=== PATIENT | male | born 1970 | race Two or more races ===

== ENCOUNTER 2023-09-02 10:42 | Emergency (ER) | payer OTHER ==
[~2023-09-02] VITALS: Ht 177.8 cm; Wt 90.0 kg
[~2023-09-02 10:42] MED LIST: CEPH250C PO
[2023-09-02 11:02] VITALS: BP 138/88
[2023-09-02 11:40] VITALS: PULSE 82; RESP 18; TEMP 98.5; O2SAT 97
== END 2023-09-02 11:57 | disposition home or self-care (01) ==
LOC: ER 10:42
DX: Z46.6 Encounter for fitting and adjustment of urinary device (principal); R33.9 Retention of urine, unspecified; Z79.899 Other long term (current) drug therapy

== ENCOUNTER 2025-07-26 05:47 | Inpatient (IN) | payer OTHER ==
[~2025-07-26] VITALS: Ht 177.8 cm; Wt 91.0 kg
[2025-07-26] MEDS: ONDANSETRON HCL 4 MG/2 ML VIAL IV ONE ×2 (07:04→08:25)
[2025-07-26] MEDS: SODIUM CHLORIDE 0.9% 1,000 ML IVB ONE (07:04)
[2025-07-26] MEDS: KETOROLAC TROMETH 30 MG/ML 1ML VIAL IV ONE (07:04)
--- NOTE | 2025-07-26 07:18 | ED.PDOC ---
General HPI Comments 54 y/o M, with PMHx of prostate cancer presents to the ED for CC of flank pain. Patient reports, that he has been experiencing bilateral flank pain sudden onset, 2300 last night (07/25/25). Patient comments, that he was recently told by his PCP to have a kidney stones and believes symptoms maybe related. Patient denies frequency, urgency, fever, hematuria, or penile discharge. No other symptoms or modifying factors are present at this time. Chief Complaint: Flank Pain Time Seen by MD: 06:45 Primary Care Provider: DEMARCUS Reviewed notes: Nurses Notes, Medications, Allergies Allergies: Coded Allergies: NO KNOWN ALLERGIES (Unverified , 09/01/23) Home Meds Active Scripts Cephalexin (KEFLEX CAPSULE) 250 Mg Cp, 500 MG PO QID for 10 Days, #80 CAP Prov:LIN CRUZ MD 09/01/23 Information Source: Patient Mode of Arrival: Ambulatory Severity: Moderate Timing: Hours Duration: Since onset Prehospital treatment: None Onset: Spontaneous Symptoms: None History of: Kidney stone, None (prostate cancer) Location: (R) Flank, (L)Flank Penile discharge: None Modifying factors: None associated signs and symptoms: Back Pain Past Medical History PAST MEDICAL HISTORY: Cancer Family History Family History: Reviewed,noncontributory to illness Social History Smoker: Non-Smoker Alcohol: Denies ETOH Use Drugs: Denies Drug Use Lives In: Home Constitutional: denies: chills, diaphoresis, fatigue, fever, malaise, sweats, weakness, others EENTM: denies: blurred vision, double vision, ear bleeding, ear discharge, ear drainage, ear pain, ear ringing, eye pain, eye redness, hearing loss, mouth pain, mouth swelling, nasal discharge, nose bleeding, nose congestion, nose pain, photophobia, tearing, throat pain, throat swelling, voice changes, others Respiratory: denies: cough, hemoptysis, orthopnea, SOB at rest, shortness of breath, SOB with excertion, stridor, wheezing, others Cardiovascular: denies: chest pain, dizzy spells, diaphoresis, Dyspnea on exertion, edema, irregular heart beat, left arm pain, lightheadedness, palpitations, PND, syncope, others Gastrointestinal: denies: abdomen distended, abdominal pain, blood streaked bowels, constipated, diarrhea, dysphagia, difficulty swallowing, hematemesis, melena, nausea, poor appetite, poor fluid intake, rectal bleeding, rectal pain, vomiting, others Genitourinary: denies: burning, dysuria, flank pain, frequency, hematuria, incontinence, penile discharge, penile sore, pain, testicle pain, testicle swelling, urgency, others Neurological: denies: dizziness, fainting, headache, left sided numbness, left sided weakness, numbness, paresthesia, pre-existing deficit, right sided numbness, right sided weakness, seizure, speech problems, tingling, tremors, weakness, others Musculoskeletal: reports: back pain; denies: gout, joint pain, joint swelling, muscle pain, muscle stiffness, neck pain, others Integumetry: denies: bruises, change in color, change in hair/nails, dryness, laceration, lesions, lumps, rash, wounds, others Allergic/Immunocompromised: denies: Difficulty Healing, Frequent Infections, Hives, Itching, others Hematologic/Lymphatic: denies: anemia, blood clots, easy bleeding, easy bruising, swollen glands, others Endocrine: denies: excessive hunger, excessive sweating, excessive thirst, excessive urination, flushing, intolerance to cold, intolerance to heat, unexplained weight gain, unexplained weight loss, others Psychiatric: denies: anxiety, bipolar disorder, depression, hopeless, panic disorder, schizophrenia, sleepless, suicidal, others All Other Systems: Reviewed and Negative Physical Exam General Appearance: Moderate Distress HEENT: Normal ENT Inspection, Pharynx Normal, TMs Normal Neck: Full Range of Motion, Non-Tender, Normal, Normal Inspection Respiratory: Chest Non-Tender, Lungs Clear, No Accessory Muscle Use, No Respiratory Distress, Normal Breath Sounds Cardiovascular: No Edema, No JVD, No Murmur, No Gallop, Normal Peripheral Pulses, Regular Rate/Rhythm Breast Exam: Deferred Gastrointestinal: Diffuse, No Organomegaly, No Pulsatile Mass, Normal Bowel Sounds, Soft Genitalia: Deferred Pelvic: Deferred Rectal: Deferred Extremities: No calf tenderness, Normal capillary refill, Normal inspection, Normal range of motion, Non-tender, No pedal edema Musculoskeletal : Apperance: Normal Neurologic: Alert, outside parts sales II-XII nml as Tested, No Motor Deficits, Normal Affect, Normal Mood, No Sensory Deficits Cerebellar Function: Normal Reflexes: Normal Skin: Dry, Normal Color, Warm Peripheral Pulses: 3+ Radial (R), 3+ Radial (L) Lymphatic: No Adenopathy Was a procedure done? Was a procedure done?: No Differential Diagnosis Kidney stone (Female): Musculoskeletal pain, Urinary obstruction, Urolithiasis Kidney stone (Male): Pyelonephritis, Strain, Urinary obstruction, Urolithiasis, Urinary tract infection X-Ray, Labs, Meds, VS Vital Signs Date Time Temp Pulse Resp B/P (MAP) Pulse Ox O2 Delivery O2 Flow Rate FiO2 07/26/25 07:05 Room Air* 0 21 07/26/25 07:04 97.9 77 20 110/73 (85) 98 97.9 07/26/25 05:49 98.0 88 20 125/93 98 98.0 Current Medications Medications (Trade) Dose Ordered Sig/Melida Route Start Time Stop Time Status Last Admin Ondansetron HCl (Zofran) 4 mg ONCE ONCE IV 07/26/25 06:45 07/26/25 06:46 DC 07/26/25 07:04 Sodium Chloride 1,000 ml @ 1,000 mls/hr Q1H ONCE IVB 07/26/25 06:45 07/26/25 07:44 DC 07/26/25 07:04 Ketorolac Tromethamine (Toradol Injection) 30 mg ONCE ONCE IV 07/26/25 06:45 07/26/25 06:46 DC 07/26/25 07:04 Patient alert. Complaining of flank pain. Vitals stable. Answering questions. Ambulating. He is in pain. Blood pressure within normal limits. Equal in both arms. Saturation pristine on room air. Establish intravenous access. Was given fluids. Was given Toradol. Was given Zofran. Explained to the patient. Continue monitoring. [address] [address] Ph: [phone] DIAGNOSTIC IMAGING Diagnostic Imaging Report : [id number] Signed PATIENT: BETSY ALLEN ACCT: [id number] UNIT: [id number] : 1970 LOC: ER ROOM / BED: / AGE / SEX: 54 / M ADM STATUS: REG ER SERVICE [id number] ORDERING PHYSICIAN: MAJOR YARBROUGH MD PROCEDURE(s): ABPL - CT AB PEL WO CON-NO ORAL OR IV REASON: stone ORDER NUMBER(s): [id number], ACCESSION NUMBER(s): [id number] Exam: CT CT AB PEL WO CON-NO ORAL OR IV History: Stone. Comparison Study: CT CT AB PEL WO CON-NO ORAL OR IV on DOS: 09/01/23 Technique: Multidetector spiral CT of the abdomen and pelvis was performed from lung bases to pubic symphysis. Imaging was performed without intravenous contrast. Coronal and sagittal multiplanar reformats were obtained from the ax ial data set by the technologist. Radiation Dose : 1. Abdomen/Pelvis: CTDIvol 11.19 mGy, DLP 625.81 mGy*cm. Findings: Evaluation of vasculature and solid organs is limited due to lack of intravenous contrast use. Lung Bases: Lung bases are clear. Visualized portions of the heart and pericardium are unremarkable. Liver: The liver is normal in size. No focal lesions. Gallbladder and Biliary Tree: Gallstones noted. No intrahepatic or extrahepatic biliary ductal dilatation. Spleen: Unremarkable Pancreas: The pancreas is grossly unremarkable. Adrenal Glands: Unremarkable Kidneys: There is mild left hydroureteronephrosis due to obstructive distal left ureteral calculus. There are punctate bilateral renal calculi measuring up to 3 mm in the right kidney. GI tract: The stomach is grossly normal in appearance. No evidence of small bowel wall thickening or abnormal dilatation to suggest bowel obstruction. There is colonic diverticulosis without acute diverticulitis. Normal appendix. Peritoneum/mesentery/retroperitoneum. No evidence of free intraperitoneal air. No ascites. No evidence of suspicious lymphadenopathy. Abdominal Wall: Unremarkable. Vasculature: The visualized abdominal aorta is normal in size and caliber. Evaluation of abdominal and pelvic vessels is limited due to lack of intravenous contrast. Urinary Bladder: Grossly unremarkable for degree of distention. Pelvic Organs: The prostate is not visualized. Musculoskeletal: No fracture or subluxation. Sclerotic lesions are present thro ughout the lumbar spine vertebral bodies and ribs. IMPRESSION: 1. Mild left hydroureteronephrosis due to obstructive distal left ureteral calculus. 2. Punctate bilateral renal calculi measuring up to 3 mm in the right kidney. 3. Cholelithiasis. 4. Colonic diverticulosis without acute diverticulitis. 5. Sclerotic lesions throughout the lumbar spine vertebral bodies. These are highly concerning for metastatic disease. Nuclear medicine bone scan recommended. ATED BY: FERMIN WOOTEN MD DICTATED DATE/TIME: 07/26/25727 SIGNED BY: FERMIN WOOTEN MD SIGNED DATE/TIME: 07/26/25727 CC: Time of 1ST Reevaluation: 07:15 Reevaluation 1ST: Unchanged Patient Education/Counseling: Diagnosis, Treatment Family Education/Counseling: Diagnosis, Treatment SEPSIS Sepsis Screen Date sepsis recognized/suspect: Jul 26, 2025 Time Sepsis recognized/suspect: 0553 Recent Procedure: No On Antibiotic Therapy: No Respiratory Rate >20: No Heart Rate >90: No Temp<36 C (96.8 F) or >38.3 C: No SBP <90 or MAP <65 mmHG: No New Acute Mental Status Change: No Is the patient on CPAP, BIPAP,: No Physician Orders Urinalysis (07/26/25 06:37) Ct Ab Pel Wo Con-No Oral Or Iv (07/26/25 06:37) Hydromorphone Injection (Dilaudid Inject (07/26/25 08:00) Ondansetron Hcl (Zofran) (07/26/25 08:00) Vital Signs Date Time Temp Pulse Resp B/P (MAP) Pulse Ox O2 Delivery O2 Flow Rate FiO2 07/26/25 07:05 Room Air* 0 21 07/26/25 07:04 97.9 77 20 110/73 (85) 98 97.9 07/26/25 05:49 98.0 88 20 125/93 98 98.0 Medications Medications Dose Ordered Sig/Melida Route Start Time Stop Time Status Last Admin Dose Admin Ketorolac Tromethamine 30 mg ONCE ONCE IV 07/26/25 06:45 07/26/25 06:46 DC 07/26/25 07:04 Ondansetron HCl 4 mg ONCE ONCE IV 07/26/25 06:45 07/26/25 06:46 DC 07/26/25 07:04 Sodium Chloride 1,000 ml @ 1,000 mls/hr Q1H ONCE IVB 07/26/25 06:45 07/26/25 07:44 DC 07/26/25 07:04 Departure 1 Departure Time of Disposition: 07:38 Impression: Primary Impression: Acute abdominal pain Disposition: ADMITTED INPATIENT Admit to: Med Surg Condition: Guarded Critical Care Note Critical Care Time?: No Stability Stability form required: No Heart Score Heart Score: Heart Score Response (Comments) Value History N/A 0 EKG N/A 0 Age N/A 0 Risk Factors N/A 0 Troponin N/A 0 Total 0 I personally scribed for MAJOR YARBROUGH MD ([email or web address]) on 07/26/25 at 07:18. Electronically submitted by Casie Kirby ([email or web address]). I personally scribed for MAJOR YARBROUGH MD ([email or web address]) on 07/26/25 at 07:58. Electronically submitted by Casie Kirby ([email or web address]). MAJOR YARBROUGH MD Jul 26, 2025 07:18
--- NOTE | 2025-07-26 07:31 | DVH ---
Exam: CT CT AB PEL WO CON-NO ORAL OR IV History: Stone. Comparison Study: CT CT AB PEL WO CON-NO ORAL OR IV on DOS: 09/01/23 Technique: Multidetector spiral CT of the abdomen and pelvis was performed from lung bases to pubic s ymphysis. Imaging was performed without intravenous contrast. Coronal and sagittal multiplanar reform ats were obtained from the axial data set by the technologist. Radiation Dose : 1. Abdomen/Pelvis: CTDIvol 11.19 mGy, DLP 625.81 mGy*cm. Findings: Evaluation of vasculature and solid organs is limited due to lack of intravenous contrast use. Lung Bases: Lung bases are clear. Visualized portions of the heart and pericardium are unremarkable. Liver: The liver is normal in size. No focal lesions. Gallbladder and Biliary Tree: Gallstones noted. No intrahepatic or extrahepatic biliary ductal dilat ation. Spleen: Unremarkable Pancreas: The pancreas is grossly unremarkable. Adrenal Glands: Unremarkable Kidneys: There is mild left hydroureteronephrosis due to obstructive distal left ureteral calculus. T here are punctate bilateral renal calculi measuring up to 3 mm in the right kidney. GI tract: The stomach is grossly normal in appearance. No evidence of small bowel wall thickening or abnormal dilatation to suggest bowel obstruction. There is colonic diverticulosis without acute diver ticulitis. Normal appendix. Peritoneum/mesentery/retroperitoneum. No evidence of free intraperitoneal air. No ascites. No evidenc e of suspicious lymphadenopathy. Abdominal Wall: Unremarkable. Vasculature: The visualized abdominal aorta is normal in size and caliber. Evaluation of abdominal a nd pelvic vessels is limited due to lack of intravenous contrast. Urinary Bladder: Grossly unremarkable for degree of distention. Pelvic Organs: The prostate is not visualized. Musculoskeletal: No fracture or subluxation. Sclerotic lesions are present throughout the lumbar spin e vertebral bodies and ribs. IMPRESSION: 1. Mild left hydroureteronephrosis due to obstructive distal left ureteral calculus. 2. Punctate bilateral renal calculi measuring up to 3 mm in the right kidney. 3. Cholelithiasis. 4. Colonic diverticulosis without acute diverticulitis. 5. Sclerotic lesions throughout the lumbar spine vertebral bodies. These are highly concerning for m etastatic disease. Nuclear medicine bone scan recommended.
[2025-07-26] MEDS: HYDROmorphone HCL 2 MG/ML VL/or syr IV ONE (08:26)
[2025-07-26] MEDS ORDERED: ACETAMINOPHEN 325 MG TAB PO PRN (08:30)
[2025-07-26 08:39] VITALS: PULSE 72; RESP 16; O2SAT 94
[2025-07-26 08:47] LABS: Potassium 4.3 mmol/L (3.5-5.1); Sodium 141 mmol/L (136-145)
[2025-07-26 08:48] LABS: Anion Gap 9 (5-15); Carbon Dioxide 25 mmol/L (20-31); Hematocrit 32.5 % (41.0-53.0); Hemoglobin 10.9 g/dL (13.5-17.5); Mean Corpuscular Hemoglobin 27.7 pg (28.0-32.0); Mean Corpuscular Volume 82.3 fL (80.0-100.0); Nucleated Red Blood Cells % 0.0 %
[2025-07-26 08:49] LABS: Calcium 8.7 mg/dL (8.7-10.4)
[2025-07-26 08:50] LABS: Chloride 107 mmol/L (98-107)
[2025-07-26 08:54] LABS: BUN/Creatinine Ratio 14.6 (10.0-20.0); Blood Urea Nitrogen 14 mg/dL (9-23); Glucose 99 mg/dL (74-106)
[2025-07-26] MEDS: TAMSULOSIN HYDROCHLORIDE 0.4 MG CAP PO ONE (09:05)
[2025-07-26] MEDS: SODIUM CHLORIDE 0.9% 1,000 ML IV SCH (09:05)
[2025-07-26 09:20] LABS: Urine Protein, UAD Negative (Negative)
[2025-07-26] MEDS: LORazepam 2MG/ML-1ML VIAL IV ONE (09:29)
[2025-07-26 09:55] VITALS: BP 123/95; PULSE 68; RESP 16; TEMP 98; O2SAT 98
[2025-07-26] MEDS: ENOXAPARIN SOD 40 MG/0.4 ML SYRINGE SC SCH (10:00)
--- NOTE | 2025-07-26 10:03 | DVHHP2 ---
History of Present Illness Reason for Visit: Flank plain due to obstructive left ureterolithiasis with hydronephros History of Present Illness This is a 54-year-old male with history of prostate cancer who presents to ED with chief complaint of left flank pain that started suddenly last night around 2300. Patient comments that he was recently told by his PCP that he has kidney stones and believe that his symptoms are because of it. The patient is concerned about his symptoms and would like to be further evaluated and treated. The patient will be admitted under hospitalist care to the medical-surgical unit. The patient denies fever, chills, headache, dizziness, palpitation, ches t pain, nausea, vomiting, abdominal pain, diarrhea, constipation and other associated symptoms. The plan has been discussed with the patient and spouse was at the bedside in which all questions concerns have been addressed. Past Medical History Prostate cancer Past Surgical History: None Family History: None Smoke: No ALCOHOL: none Drugs: None Lives: with Family Domestic Violence: Neg Review of Systems Gastrointestinal: Abdominal Pain (Left flank pain) Allergies: Coded Allergies: NO KNOWN ALLERGIES (Unverified , 09/01/23) Medications Current Medications Medications Dose Ordered Sig/Melida Route Start Time Stop Time Status Last Admin Dose Admin Tamsulosin HCl 0.4 mg QPM PO 07/26/25 18:00 Ketorolac Tromethamine 15 mg Q6HPRN PRN IV 07/26/25 08:15 07/31/25 08:14 Sodium Chloride 1,000 ml @ 75 mls/hr [id number] IV 07/26/25 08:30 UNV Acetaminophen/ Hydrocodone Bitart 1 tab Q4HP PRN PO 07/26/25 08:30 UNV Enoxaparin Sodium 40 mg DAILY SC 07/26/25 10:00 UNV Acetaminophen 650 mg Q6HP PRN PO 07/26/25 08:30 UNV Exam Vital Signs Vital Signs Date Time Temp Pulse Resp B/P (MAP) Pulse Ox O2 Delivery O2 Flow Rate FiO2 07/26/25 07:05 Room Air* 0 21 07/26/25 07:04 97.9 77 20 110/73 (85) 98 97.9 General Appearance: Alert, Oriented X3, Cooperative, No acute distress HEENT: Atraumatic, PERRLA Respiratory: Clear to auscultation, Normal air movement Cardiovascular: Regular rate, Normal S1, Normal S2, No murmurs Abdominal: Normal bowel sounds, Soft, No tenderness, No hepatospenomegaly Extremities: No clubbing, No cyanosis, No edema, Normal pulses, No tenderness/swelling Skin: No rashes, No breakdown Neuro: Normal gait, Normal speech, Strength at 5/5 X4 ext, Normal tone, Sensation intact, Cranial nerves 3-12 NL Psych/Mental Status: Mental status NL SEPSIS Sepsis Screen Date sepsis recognized/suspect: Jul 26, 2025 Time Sepsis recognized/suspect: 552 Recent Procedure: No On Antibiotic Therapy: No Respiratory Rate >20: No Heart Rate >90: No Temp<36 C (96.8 F) or >38.3 C: No SBP <90 or MAP <65 mmHG: No New Acute Mental Status Change: No Is the patient on CPAP, BIPAP,: No Physician Orders Urinalysis (07/26/25 06:37) Ct Ab Pel Wo Con-No Oral Or Iv (07/26/25 06:37) Basic Metabolic Panel (07/26/25 08:14) Complete Blood Count (07/26/25 08:14) Ptt & Cbc Qd While On Heparin (07/26/25 08:14) Tamsulosin Hydrochloride (Flomax) (07/26/25 18:00) Ketorolac Injection (Toradol Injection) (07/26/25 08:15) * Urology Consult (07/26/25 08:17) Communication Order (07/26/25 08:17) Admit (07/26/25 08:18) 2 Gm Sodium Diet (07/26/25 Breakfast) Sodium Chloride 0.9% (07/26/25 08:30) Hydrocodone-Acet 5/325mg Tab (Greene 5/32 (07/26/25 08:30) Enoxaparin Sodium (Lovenox) (07/26/25 10:00) Comprehensive Metabolic Panel (07/27/25 04:00) Condition: Fair (07/26/25 08:18) Acetaminophen Tablet (Tylenol Tablet) (07/26/25 08:30) Bedrest With Bathroom Privileg (07/26/25 08:18) Vital Signs Date Time Temp Pulse Resp B/P (MAP) Pulse Ox O2 Delivery O2 Flow Rate FiO2 07/26/25 07:05 Room Air* 0 21 07/26/25 07:04 97.9 77 20 110/73 (85) 98 97.9 07/26/25 05:49 98.0 88 20 125/93 98 98.0 Medications Medications Dose Ordered Sig/Melida Route Start Time Stop Time Status Last Admin Dose Admin Ketorolac Tromethamine 30 mg ONCE ONCE IV 07/26/25 06:45 07/26/25 06:46 DC 07/26/25 07:04 30 MG Ondansetron HCl 4 mg ONCE ONCE IV 07/26/25 06:45 07/26/25 06:46 DC 07/26/25 07:04 4 MG Sodium Chloride 1,000 ml @ 1,000 mls/hr Q1H ONCE IVB 07/26/25 06:45 07/26/25 07:44 DC 07/26/25 07:04 1,000 MLS/HR Assessment/Plan Assessment/Plan Flank plain due to obstructive left ureterolithiasis with hydronephrosis-patient with left flank pain that started last night at 11:00 p.m. Patient recently told by PCP that he currently has kidney stone The patient was given Toradol and Dilaudid for pain Admit to medical-surgical unit Ordered CBC pending Ordered BMP pending Urinalysis pending Reviewed CT abdomen shows left hydro ureteral nephrosis due to obstructive distal ureteral calculus; 3 mm stone to right kidney; cholelithiasis and questionable metastatic disease IV hydration IV Toradol for pain Greene as needed for pain IV ceftriaxone x1 now Start Flomax 0.4 mg p.o. x1 now and daily Prostate cancer Patient has scheduled IV infusion tomorrow at [facility] to begin trial Reconcile home med DVT prophylaxis PUD prophylaxis not indicated Labs in a.m. Discussed plan of care with the patient, RN and spouse in which all questions concerns have been addressed Plan discussed with: Patient My Orders Orders - ESTER SAENZ [employer] Procedure Category Date Status Time Basic Metabolic Panel LAB 07/26/25 Logged 08:14 Complete Blood Count LAB 07/26/25 Logged 08:14 Ptt & Cbc Qd While On ANNA 07/26/25 In Process Heparin 08:14 Tamsulosin PHA 07/26/25 In Process Hydrochloride (Flomax) 18:00 Ketorolac Injection PHA 07/26/25 In Process (Toradol Injection) 08:15 * Urology Consult CONS 07/26/25 Transmitted 08:17 Communication Order ORDERS 07/26/25 Transmitted 08:17 Admit ADMIT 07/26/25 Transmitted 08:18 2 Gm Sodium Diet DIET 07/26/25 Transmitted Breakfast Sodium Chloride 0.9% PHA 07/26/25 Logged 08:30 Hydrocodone-Acet PHA 07/26/25 Logged 5/325mg Tab (Greene 08:30 Enoxaparin Sodium PHA 07/26/25 Logged (Lovenox) 10:00 Comprehensive LAB 07/27/25 Verified Metabolic Panel 04:00 Condition: Fair ANNA 07/26/25 In Process 08:18 Acetaminophen Tablet PHA 07/26/25 Logged (Tylenol Tablet) 08:30 Bedrest With Bathroom ANNA 07/26/25 In Process Privileg 08:18 Date of Service: Jul 26, 2025 Billing Provider: ESTER SAENZ Common Visit Codes: [id number] INP/OBS CARE (HIGH) ESTER SAENZ Jul 26, 2025 10:03
[2025-07-26] MEDS: KETOROLAC TROMETH 30 MG/ML 1ML VIAL IV PRN (12:17)
[2025-07-26 13:00] VITALS: BP 120/74; PULSE 73; RESP 15; TEMP 98.8; O2SAT 93
[2025-07-26] MEDS: HYDROcodone-ACET 5/325MG TAB PO PRN (15:56)
--- NOTE | 2025-07-26 16:48 | DVHINCON2 ---
Date of service: Jul 26, 2025 Referring Physician Billie Reason for Consultation left ureteral stone History of Present Illness 54 yo male admitted early this am with LLQ pain from small obstructing UVJ stone. significant for prostate ca now metastatic in trial at [facility] starting tomorrow am, had radical prostatectomy 2028,off and on ADT since then Past Medical History reviewed Past Surgical History reviewed Family History: Diabetes mellitus G8 MOTHER FH: dementia G8 FATHER Allergies: Coded Allergies: NO KNOWN ALLERGIES (Unverified , 09/01/23) Home Meds Active Scripts Cephalexin (KEFLEX CAPSULE) 250 Mg Cp, 500 MG PO QID for 10 Days, #80 CAP Prov:LIN CRUZ MD 09/01/23 Current Medications Current Medications Medications (Trade) Dose Ordered Sig/Melida Route PRN Reason Start Time Stop Time Status Last Admin Tamsulosin HCl (Flomax) 0.4 mg QPM PO 07/26/25 18:00 Ketorolac Tromethamine (Toradol Injection) 15 mg Q6HPRN PRN IV MODERATE PAIN (4-6 PAIN SCALE) 07/26/25 08:15 07/31/25 08:14 07/26/25 12:17 Sodium Chloride 1,000 ml @ 75 mls/hr [id number] IV 07/26/25 08:30 07/26/25 09:05 Acetaminophen/ Hydrocodone Bitart ([place] 5/325MG Tab) 1 tab Q4HP PRN PO MODERATE PAIN (4-6 PAIN SCALE) 07/26/25 08:30 07/26/25 15:56 Enoxaparin Sodium (Lovenox) 40 mg DAILY SC 07/26/25 10:00 Acetaminophen (Tylenol Tablet) 650 mg Q6HP PRN PO PAIN SCALE 1-3 OR TEMP>100.4 07/26/25 08:30 Review of Systems reviewed Vital Signs Vital Signs Date Time Temp Pulse Resp B/P (MAP) Pulse Ox O2 Delivery O2 Flow Rate FiO2 07/26/25 13:00 98.8 73 15 120/74 (89) 93 98.8 07/26/25 09:55 Room Air* 0 21 Labs/Diagnostic Data Labs Test 07/26/25 09:05 07/26/25 08:28 Range/Units Urine Color Light-yellow Yellow Urine Clarity Clear Clear Urine pH 6.5 5.0-9.0 Urine Specific [place] 1.015 1.001-1.035 Urine Protein Negative Negative Urine Ketones Negative Negative Urine Blood Negative Negative /uL Urine Nitrite Negative Negative Urine Bilirubin Negative Negative Urine Urobilinogen Normal Negative mg/dL Urine Leukocyte Esterase Negative Negative /uL Urine RBC 1 0 - 3 /hpf Urine Microscopic WBC 1 0-3 /HPF Urine Squamous Epithelial Cells Few <5 /hpf Urine Bacteria None seen None Seen /hpf Urine Glucose Normal Normal mg/dL White Blood Count 5.4 4.4-10.8 10^3/uL Red Blood Count 3.94 L 4.5-5.90 10^6/uL Hemoglobin 10.9 L 13.5-17.5 g/dL Hematocrit 32.5 L 41.0-53.0 % Mean Corpuscular Volume 82.3 80.0-100.0 fL Mean Corpuscular Hemoglobin 27.7 L 28.0-32.0 pg Mean Corpuscular Hemoglobin Concent 33.6 32.0-36.0 g/dL Red Cell Distribution Width 13.9 11.8-14.3 % Platelet Count 205 140-450 10^3/uL Mean Platelet Volume 7.7 6.9-10.8 fL Neutrophils (%) (Auto) 64.8 37.0-80.0 % Lymphocytes (%) (Auto) 20.2 10.0-50.0 % Monocytes (%) (Auto) 12.0 0.0-12.0 % Eosinophils (%) (Auto) 2.4 0.0-7.0 % Basophils (%) (Auto) 0.6 0.0-2.0 % Neutrophils # (Auto) 3.5 1.6-8.6 10 ^3/uL Lymphocytes # (Auto) 1.1 0.4-5.4 10 ^3/uL Monocytes # (Auto) 0.7 0-1.3 10 ^3/uL Eosinophils # (Auto) 0.1 0-0.8 10 ^3/uL Basophils # (Auto) 0 0-0.2 10 ^3/uL Nucleated Red Blood Cells 0.0 % Sodium Level 141 136-145 mmol/L Potassium Level 4.3 3.5-5.1 mmol/L Chloride Level 107 98-107 mmol/L Carbon Dioxide Level 25 20-31 mmol/L Anion Gap 9 5-15 Blood Urea Nitrogen 14 9-23 mg/dL Creatinine 0.96 0.700-1.30 mg/dL Glomerular Filtration Rate Calc 93 >90 mL/min BUN/Creatinine Ratio 14.6 10.0-20.0 Serum Glucose 99 74-106 mg/dL Calcium Level 8.7 8.7-10.4 mg/dL Assessment as above Plan/Recommendation ok to d/c today so as not to miss tomorrow infusion Plan discussed with: Patient, Spouse JONG GRAF MD Jul 26, 2025 16:48
[2025-07-26 17:00] VITALS: BP 128/87; PULSE 69; RESP 20; TEMP 98; O2SAT 98
[2025-07-26] MEDS: TAMSULOSIN HYDROCHLORIDE 0.4 MG CAP PO SCH (17:14)
== END 2025-07-26 17:15 | disposition left against medical advice (07) | DRG 694 ==
LOC: ER 05:47 → OVERFLOW 08:18 → WEST WING 09:55
PROVIDERS: ADMIT Nurse Practitioner Family; ATTEND Nurse Practitioner Family
DX: N13.2 Hydronephrosis with renal and ureteral calculous obstruction (principal); K80.20 Calculus of gallbladder without cholecystitis without obstruction; Z53.29 Procedure and treatment not carried out because of patient's decision for other reasons; Z79.899 Other long term (current) drug therapy; Z85.46 Personal history of malignant neoplasm of prostate; Z83.3 Family history of diabetes mellitus
CPT/HCPCS: 36415; 74176; 80048; 81001; 85025; 96374; G0378; J1885; J2405